=== PATIENT | male | born 1995 | race American Indian/Alaskan Native ===

== ENCOUNTER 2017-07-29 07:48 | Emergency (ER) | payer OTHER ==
[2017-07-29] MEDS ORDERED: BOOSTRIX IM ONE (09:26)
[2017-07-29] MEDS ORDERED: ULTRAM PO ONE (09:26)
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
[2017-07-29 10:51] VITALS: BP 118/56
== END 2017-07-29 11:00 | disposition home or self-care (01) ==
LOC: ED 07:48
DX: S01.511A Laceration without foreign body of lip, initial encounter (principal); S09.90XA Unspecified injury of head, initial encounter; Y04.0XXA Assault by unarmed brawl or fight, initial encounter; Y93.89 Activity, other specified; Y92.89 Other specified places as the place of occurrence of the external cause; Y99.8 Other external cause status
CPT/HCPCS: 70450; 70486; 72125; 90471; 90715